=== PATIENT | male | born 1975 | race Two or more races ===

== ENCOUNTER → 2021-01-08 09:55 | Outpatient (REF) | payer OTHER, SELFPAY | LOC: HO.SL 09:55 | PROVIDERS: PCP Internal Medicine; Visit Provider Psychiatry & Neurology Neurology | DX: G47.33 Obstructive sleep apnea (adult) (pediatric) (principal) | CPT/HCPCS: 95806 ==

== ENCOUNTER 2022-06-07 08:29 | Emergency (ER) | payer OTHER, SELFPAY ==
--- NOTE | 2022-06-07 | ECG_ITS ---
Test Reason : abd pain Blood Pressure : / mmHG Vent. Rate : 095 BPM Atrial Rate : 095 BPM P-R Int : 144 ms QRS Dur : 080 ms QT Int : 342 ms P-R-T Axes : 043 078 012 degrees QTc Int : 429 ms Normal sinus rhythm Normal ECG No previous ECGs available Referred By: Generic ED Physician Electronically Signed By:DARSHAN BHATIA MD
--- NOTE | ~2022-06-07 | CT_ITS ---
EXAMINATION: CT ABDOMEN AND PELVIS WITHOUT CONTRAST CLINICAL INFORMATION: Right lower quadrant abdominal pain. Evaluate for appendicitis. COMPARISON: None available. TECHNIQUE: Multidetector volumetric imaging was performed from the superior aspect of the liver through the pubic symphysis. Sagittal and coronal reformatted images were obtained on the technologist's workstation. This CT examination was performed using dose optimization techniques as appropriate, variously including the following: *Automated exposure control *Adjustment of mA and/or kV according to patient size (this includes techniques or standardized protocols for targeted exams where dose is matched to indication/reason for exam; i.e. extremities or head) *Use of iterative reconstruction technique DLP: 737 mGy-cm FINDINGS: LUNG BASES: The visualized lung bases are unremarkable. LIVER, GALLBLADDER, AND BILIARY TREE: The liver is normal in size and shape. Diffuse parenchymal hypoattenuation, consistent with steatosis. No focal hepatic lesion or biliary ductal dilatation is present. Prominent gallstone measuring up to 2.7 cm in greatest dimension. No gallbladder wall thickening or adjacent inflammatory change to suggest acute cholecystitis. Nondilated common bile duct. PANCREAS: Unremarkable. SPLEEN: Unremarkable. ADRENAL GLANDS: Unremarkable. KIDNEYS AND URETERS: The kidneys are normal in size, shape, and attenuation. No hydronephrosis, hydroureter, or calculi seen. No perinephric stranding. BLADDER: Unremarkable. GASTROINTESTINAL TRACT: No small or large bowel obstruction. No bowel wall thickening or inflammatory change. Unremarkable appendix. PERITONEAL CAVITY: No intra-abdominal free air or free fluid. No intra-abdominal mass or organized fluid collection/abscess formation. ABDOMINAL WALL: No significant hernia is appreciated. LYMPH NODES: No significant lymphadenopathy. VASCULAR: Unremarkable. PELVIC VISCERA: The prostate and seminal vesicles are unremarkable. OSSEOUS STRUCTURES: Unremarkable. CT/CT abdomen pelvis wo IV con IMPRESSION: 1. No small or large bowel obstruction. No bowel wall thickening or associated inflammatory change. Unremarkable appendix. 2. Hepatic steatosis. No hepatic parenchymal lesion or biliary ductal dilatation. 3. Cholelithiasis without evidence of acute cholecystitis. 4. No intra-abdominal mass, lymphadenopathy, or ascites. Fleischner guidelines were followed.
[2022-06-07 08:37] VITALS: BP 115/74; PULSE 100; RESP 16; TEMP 36.7; O2SAT 98; BMI 31.0
--- NOTE | 2022-06-07 09:27 | ED.ABDPAIN ---
HPI - Abdominal Pain General Chief Complaint: Abdominal Pain Stated Complaint: abd pain/ nausea Time Seen by Provider: 06/07/22 09:18 Source: patient Mode of arrival: ambulatory Limitations: no limitations History of Present Illness HPI narrative: 46-year-old male came in for evaluation of an abdominal pain. Abdominal pain started since last night started in the mid abdomen now is migrating to the left and right lower abdominal area, pain has been constant since yesterday patient stated that the pain started 20-30 minutes after eating a cookie that his gave him. Pain is associated with nausea and vomiting and diarrhea which patient describes as nonbloody watery. No sick contacts, no recent travel, no recent use of antibiotic. Related Data Previous Rx's Medication Instructions Recorded ondansetron 4 mg disintegrating 4 mg PO Q6-8H PRN nausea and 06/07/22 tablet vomiting #7 tabs Allergies Allergy/AdvReac Type Severity Reaction Status Date / Time No Known Allergies Allergy Verified 06/07/22 08:39 Review of Systems Review of Systems All other systems are reviewed and are negative Constitutional: Reports as per HPI and Reports no additional constitutional complaints Eyes: Reports as per HPI and Reports no additional eye complaints Reports system reviewed and no additional complaints, except as documented Cardiovascular: Reports as per HPI and Reports no additional cardiovascular complaints Respiratory: Reports as per HPI and Reports no additional respiratory complaints Gastrointestinal: Reports as per HPI and Reports no additional gastrointestinal complaints Genitourinary: Reports no additional female genitourinary complaints Musculoskeletal: Reports no additional musculoskeletal complaints Skin/Breast: Reports system reviewed and no additional complaints, except as docu Psychiatric: Reports no additional psychiatric complaints Endocrine: Reports no additional endocrine complaints Hematologic/Lymphatic: Reports no additional hematologic/lymphatic complaints Allergic/Immunologic: Reports no additional allergic/immunologic complaints Reports system reviewed and no additional complaints, except as documented and Reports Abnormal speech present [facility] Social History Social History Advance Directives: No Advance Directives Information Provided: No Physical Exam ED Vital Signs: Vital Signs - 24 hr 06/07/22 08:37 06/07/22 11:49 Temperature 98.1 F Pulse Rate 100 79 Respiratory Rate 16 16 Blood Pressure 115/74 107/69 Pulse Oximetry 98 97 Oxygen Delivery Method Room Air Room Air BMI result Body Mass Index 31.0 Vital signs have been reviewed as appeared to be correct. Blood pressure normal. Heart rate normal. Respiration rate normal. Temperature normal. Oxygen saturation normal. Appearance: Alert. Oriented X3. No acute distress. Head: Normal external exam. Normocephalic. Atraumatic. No Maldonado signs noted. No raccoon eyes noted Eyes: PERRLA. EOMI. Conjunctiva and sclera normal. Eyelids normal. ENT: TM's Normal. Pharynx normal. Uvula midline. Moist mucous membranes. No trismus noted. No drooling noted. No muffled voice noted. Neck: Normal inspection. Neck supple. FROM. No adenopathy. Thyroid Normal. No meningeal signs. No neck mass noted. CVS: Normal heart rate and rhythm. Heart sound normal. No murmurs noted. Pulses normal throughout. Respiratory: No respiratory distress. Painless inspiration. Breath sounds normal. No wheezes/rales/rhonchi noted. Chest nontender. No accessory muscle usage noted or decreased air movement noted. Abdomen: Soft, lower abdominal tenderness, no guarding. Bowel sounds normal in all 4 quadrants. No distention noted. No organomegaly noted. No visible injury noted. Back: No CVA tenderness. Full range of motion noted. Skin: Skin warm and dry. Normal skin color. Normal skin turgor. No rashes/lesions/lacerations noted. Extremities: No lower extremity edema. Extremities exhibit normal range of motion. Extremities nontender. Neuro: Oriented X 3. Cranial nerve exam: II-XII are grossly intact No motor deficit. No sensory deficit. Reflexes normal. Course Course Course Narrative: 46-year-old male came in for nausea, vomiting, nonbloody watery diarrhea, and abdominal pain, unremarkable labs and CT of the abdomen and pelvis showed normal appendix with incidental asymptomatic gallbladder stones. Patient feels better after IV hydration and able to tolerate p.o. change Medical Decision Making Differential Diagnosis Differential Diagnoses: The differential diagnosis associated with the presentation includes (Gastroenteritis, food poisoning, acute appendicitis, colitis, dehydration, electrolyte disturbance, severe anemia.) Admission/Observation Consideration of admission/observation: Escalation of care including admission/observation considered Lab Data MDM Lab Attestation statement: I reviewed the patient's lab results. 06/07/22 09:56 06/07/22 10:26 Labs: Lab Results 04/16/23 04/16/23 Range/Units 09:56 10:26 WBC 8.0 (4.8-10.8) X10*3/uL RBC 5.24 (4.60-5.80) X10*6/uL Hgb 15.1 (14.0-18.0) g/dl Hct 45.7 (42.0-52.0) % MCV 87.2 (80.0-98.0) fL MCH 28.8 (27.0-33.0) pg MCHC 33.0 (31.0-36.0) g/dl RDW 13.3 (11.0-16.0) % Plt Count 202 (160-400) X10*3/uL MPV 11.1 (9.4-12.4) fL Immature Gran % (Auto) 0.2 (0.0-0.4) % Neut % (Auto) 92.1 H (45-73) % Lymph % (Auto) 2.6 L (20-40) % Haakon % (Auto) 4.5 (2-11) % Eos % (Auto) 0.5 (0-4) % Baso % (Auto) 0.1 (0-2) % Lymph # (Auto) 0.2 L (1.2-4.9) X10*3/uL Haakon # (Auto) 0.4 (0.1-1.2) X10*3/uL Eos # (Auto) 0.0 (0.0-0.4) X10*3/uL Baso # (Auto) 0.0 (0.0-0.2) X10*3/uL Abs Immat Gran (auto) 0.02 (0.00-0.03) X10*3/uL Absolute Neuts (auto) 7.4 (2.0-8.3) x10*3/uL Absolute Nucleated RBC 0.000 (0.0-0.012) X10*3/uL Nucleated RBC % (auto) 0.0 (0.0-0.2) /100WBC Smear Tech's Comments VERIFIED Sodium 142 (135-145) mmol/L Potassium 4.2 (3.3-5.1) mmol/L Chloride 111 H (96-108) mmol/L Carbon Dioxide 21 L (22-29) mmol/L Anion Gap 14 (12-20) BUN 26 H (9-16) mg/dL Creatinine 1.12 (0.5-1.4) mg/dL Estim Creat Clear Calc 93.8 Estimated GFR > 60 Random Glucose 126 H (60-115) mg/dL Calcium 8.8 (8.4-10.2) mg/dL Total Bilirubin 0.5 (0.0-1.0) mg/dL AST 18 (5-37) U/L ALT 31 (0-40) U/L Alkaline Phosphatase 59 (39-117) U/L Total Protein 6.7 (6.5-8.0) g/dL Albumin 4.2 (3.5-5.0) g/dL Lipase 11 (8-78) U/L Independent Interpretation I performed an independent interpretation of an: CT Scan (Abdomen and pelvis: No acute intra-abdominal pathology.) Radiology Impression Discussion of test interpretation with radiology: I have reviewed the radiologist's reading. Medications Administered Discontinued Medications Generic Name Dose Route Start Last Admin Trade Name Freq PRN Reason Stop Dose Admin Sodium Chloride 1,000 mls @ 999 mls/hr 06/07/22 10:06/07/22 10:17 Ns IV 06/07/22 11:06 999 mls/hr .Q1H1M ONE Administration Morphine Sulfate 2 mg 06/07/22 10:06/07/22 10:17 Morphine Sulfate 2 Mg/Ml Cartridge IVPUSH 06/07/22 10:07 2 mg ONCE ONE Administration Protocol Ondansetron HCl 4 mg 06/07/22 10:06/07/22 10:17 Ondansetron Hcl 4 Mg/2 Ml Vial IVPUSH 06/07/22 10:07 4 mg ONCE ONE Administration Discharge Plan Discharge Clinical Impression: Gastroenteritis, Cholelithiasis Patient Disposition: Home, Self-Care Instructions: Gastroenteritis (ED) Prescriptions: New ondansetron 4 mg tablet,disintegrating 4 mg PO Q6-8H PRN (Reason: nausea and vomiting) Qty: 7 0RF
[2022-06-07 10:03] LABS: Basophils Percent Auto 0.1 % (0-2); Eosinophils Percent Auto 0.5 % (0-4); Hematocrit 45.7 % (42.0-52.0); Hemoglobin 15.1 g/dl (14.0-18.0); Imm Gran Abs Auto 0.02 X10*3/uL (0.00-0.03); Imm Gran Pct Auto 0.2 % (0.0-0.4); Lymphocytes Absolute Auto 0.2 X10*3/uL (1.2-4.9); Lymphocytes Percent Auto 2.6 % (20-40); MANUAL DIFF FLAG SCAN; Mean Corpuscular Hemoglobin 28.8 pg (27.0-33.0); Mean Corpuscular Volume 87.2 fL (80.0-98.0); Mean Platelet Volume 11.1 fL (9.4-12.4); Monocytes Absolute Auto 0.4 X10*3/uL (0.1-1.2); Monocytes Percent Auto 4.5 % (2-11); Neutrophils Absolute Auto 7.4 x10*3/uL (2.0-8.3); Neutrophils Percent Auto 92.1 % (45-73); Platelet Count 202 X10*3/uL (160-400); Red Blood Count 5.24 X10*6/uL (4.60-5.80); Red Cell Distribution Width 13.3 % (11.0-16.0); SCAN SMEAR FLAG 1
[2022-06-07] MEDS: Morphine Sulfate 2 MG/ML CARTRIDGE IVPUSH (10:17)
[2022-06-07] MEDS: ondansetron HCL 4 MG/2 ML VIAL IVPUSH (10:17)
[2022-06-07] MEDS: 0.9 % Sodium Chloride 1,000 ML 999 ML IV (10:17)
--- NOTE | 2022-06-07 10:27 | MHC.EDTECH ---
Labs recollected and sent
[2022-06-07 10:31] LABS: SLIDE REVIEW VERIFIED
[2022-06-07 10:55] LABS: Alanine Aminotransferase 31 U/L (0-40); Albumin Level 4.2 g/dL (3.5-5.0); Alkaline Phosphatase 59 U/L (39-117); Anion Gap 14 (12-20); Aspartate Amino Transferase 18 U/L (5-37); Bilirubin Total 0.5 mg/dL (0.0-1.0); Blood Urea Nitrogen 26 mg/dL (9-16); Calcium 8.8 mg/dL (8.4-10.2); Carbon Dioxide 21 mmol/L (22-29); Chloride 111 mmol/L (96-108); Creatinine Clr Calc Pharmacy 93.8; Estimated Glomerular Filt Rate > 60; Glucose Random 126 mg/dL (60-115); Lipase 11 U/L (8-78); Potassium 4.2 mmol/L (3.3-5.1); Sodium 142 mmol/L (135-145); Total Protein 6.7 g/dL (6.5-8.0)
[2022-06-07 11:49] VITALS: BP 107/69; PULSE 79; RESP 16; O2SAT 97
== END 2022-06-07 11:58 | disposition home or self-care (01) ==
PROVIDERS: Emergency Provider Emergency Medicine
DX: K52.9 Noninfective gastroenteritis and colitis, unspecified (principal); K80.20 Calculus of gallbladder without cholecystitis without obstruction; R10.31 Right lower quadrant pain; Z79.899 Other long term (current) drug therapy
CPT/HCPCS: 36415; 74176; 80053; 83690; 85025; 93005; 96361; 96374; 96375; 99284; 99285; J2270; J2405

== ENCOUNTER 2022-11-06 22:00 | Emergency (ER) | payer OTHER, SELFPAY ==
--- NOTE | ~2022-11-06 | US_ITS ---
EXAMINATION: US ABDOMEN LIMITED CLINICAL INFORMATION: Right upper quadrant pain. COMPARISON: CT abdomen/pelvis 06/07/2022. TECHNIQUE: Real-time imaging of the right upper quadrant abdominal viscera. FINDINGS: PANCREAS: Normal. LIVER: Increased liver parenchymal echogenicity sparing areas adjacent to the gallbladder fossa. Otherwise, liver is normal in size and shape. No intrahepatic biliary ductal dilatation. GALLBLADDER: Cholelithiasis, including an impacted calculus in the neck. No significant wall thickening or pericholecystic free fluid. Negative Alcantar's sign. COMMON BILE DUCT: Normal in caliber measuring 0.3 cm in diameter. RIGHT KIDNEY: Normal. No hydronephrosis. No renal calculi or focal parenchymal lesions. The kidney measures 10.5 cm in maximum dimension. FREE FLUID: None. US/US abdomen limited IMPRESSION: 1. Cholelithiasis, including an impacted calculus in the gallbladder neck. However, there is no significant wall thickening or pericholecystic free fluid to suggest acute cholecystitis. 2. Hepatic steatosis with regional sparing adjacent to the gallbladder fossa.
--- NOTE | ~2022-11-06 | CT_ITS ---
EXAMINATION: CT ABDOMEN AND PELVIS WITH CONTRAST CLINICAL INFORMATION: Right lower quadrant pain. COMPARISON: None available. TECHNIQUE: Multidetector volumetric images were obtained from the superior aspect of the liver through the pubic symphysis following administration 85 mL of Omnipaque 350 intravenous contrast. Sagittal and coronal reformatted images were obtained on the technologist's workstation. Oral contrast: No This CT examination was performed using dose optimization techniques as appropriate, variously including the following: *Automated exposure control *Adjustment of mA and/or kV according to patient size (this includes techniques or standardized protocols for targeted exams where dose is matched to indication/reason for exam; i.e. extremities or head) *Use of iterative reconstruction technique DLP: 716 mGy-cm FINDINGS: LUNG BASES: The visualized lung bases are unremarkable. LIVER, GALLBLADDER, AND BILIARY TREE: The liver is of diminished attenuation. No focal liver lesions are seen. There is no intrahepatic biliary duct dilatation. Gallstones are noted. PANCREAS: Unremarkable. SPLEEN: Unremarkable. ADRENAL GLANDS: Unremarkable. KIDNEYS AND URETERS: The kidneys are normal in size, shape, and attenuation. No hydronephrosis, hydroureter, or calculi seen. No perinephric stranding. BLADDER: Unremarkable. GASTROINTESTINAL TRACT: The small and large bowel are unremarkable. The appendix is unremarkable. ABDOMINAL WALL: There are small fat-containing hernias. LYMPH NODES: Normal. VASCULAR: Unremarkable. PELVIC VISCERA: Unremarkable. OSSEOUS STRUCTURES: Unremarkable. CT/CT abdomen pelvis w IV con IMPRESSION: The appendix is visualized and is within normal limits. Fatty infiltration of the liver. Cholelithiasis. Fleischner guidelines were followed.
[2022-11-06 22:01] VITALS: BP 145/84; PULSE 74; RESP 16; TEMP 35.8; O2SAT 100; BMI 31.6
--- NOTE | 2022-11-06 22:08 | ECG_ITS ---
Test Reason : ABDOMIAL PAIN Blood Pressure : / mmHG Vent. Rate : 061 BPM Atrial Rate : 061 BPM P-R Int : 174 ms QRS Dur : 082 ms QT Int : 400 ms P-R-T Axes : 041 025 024 degrees QTc Int : 402 ms Normal sinus rhythm Normal ECG When compared with ECG of 07-JUN-2022 08:47, Vent. rate has decreased BY 34 BPM Referred By: Generic ED Physician Electronically Signed By:ADELSO AGUILLON
[2022-11-06 22:29] LABS: MANUAL DIFF FLAG NO
[2022-11-06 22:31] LABS: Basophils Percent Auto 0.4 % (0-2); Eosinophils Absolute Auto 0.2 X10*3/uL (0.0-0.4); Hematocrit 43.3 % (42.0-52.0); Hemoglobin 14.8 g/dl (14.0-18.0); Imm Gran Abs Auto 0.01 X10*3/uL (0.00-0.03); Imm Gran Pct Auto 0.2 % (0.0-0.4); Lymphocytes Absolute Auto 1.2 X10*3/uL (1.2-4.9); Lymphocytes Percent Auto 24.2 % (20-40); Mean Corpuscular HGB Conc 34.2 g/dl (31.0-36.0); Mean Corpuscular Hemoglobin 29.6 pg (27.0-33.0); Mean Corpuscular Volume 86.6 fL (80.0-98.0); Mean Platelet Volume 11.3 fL (9.4-12.4); Monocytes Absolute Auto 0.5 X10*3/uL (0.1-1.2); Monocytes Percent Auto 10.2 % (2-11); Neutrophils Absolute Auto 3.1 x10*3/uL (2.0-8.3); Platelet Count 239 X10*3/uL (160-400); Red Cell Distribution Width 13.3 % (11.0-16.0)
[2022-11-06 23:02] LABS: Alanine Aminotransferase 38 U/L (0-40); Albumin Level 4.4 g/dL (3.5-5.0); Alkaline Phosphatase 72 U/L (39-117); Aspartate Amino Transferase 24 U/L (5-37); Bilirubin Direct 0.1 mg/dL (0.0-0.5); Bilirubin Total 0.3 mg/dL (0.0-1.0); Blood Urea Nitrogen 19 mg/dL (9-16); Calcium 9.6 mg/dL (8.4-10.2); Creatinine Clr Calc Pharmacy 94.6; Estimated Glomerular Filt Rate > 60; Glucose Random 86 mg/dL (60-115); Lipase 18 U/L (8-78); Total Protein 7.7 g/dL (6.5-8.0)
--- NOTE | 2022-11-06 23:20 | ED_ITS ---
HPI - Abdominal Pain General Chief Complaint: Abdominal Pain Stated Complaint: R sided abdominal pain Time Seen by Provider: 11/06/22 23:17 History of Present Illness HPI narrative: Patient is a 47-year-old male has a history of abdominal pain on the right side. Is specially made worse after Haitian fries and chicken nuggets. The pain is dull it is associated with some mild nausea. It is made worse with the food. Been having the pain for the last month. No chest pain or shortness of breath no history of abdominal surgery in the past. No diaphoresis. No fever no chills no cough and congestion or upper respiratory symptoms. No change of bowel movement. The pain is cramping. Related Data Previous Rx's Medication Instructions Recorded ondansetron 4 mg disintegrating 4 mg PO Q6-8H PRN nausea and 06/07/22 tablet vomiting #7 tabs Allergies Allergy/AdvReac Type Severity Reaction Status Date / Time No Known Allergies Allergy Verified 06/07/22 08:39 Review of Systems Review of Systems Positive right-sided abdominal pain Yes all other systems are reviewed and are negative [facility] Past Medical History Attestation statement: The following information was validated with the patient. Social History Social History Smoked in Last 30 Days: No Use of substances other than those prescribed or required for medical reasons: No Advance Directives: No Advance Directives Information Provided: No Physical Exam ED Vital Signs: Vital Signs - 24 hr 11/06/22 22:01 11/07/22 00:09 Temperature 96.4 F L 97.9 F Pulse Rate 74 60 Respiratory Rate 16 14 Blood Pressure 145/84 H 128/65 Pulse Oximetry 100 97 Oxygen Delivery Method Room Air BMI result Body Mass Index 31.6 Appearance: Alert. Oriented X3. No acute distress. Eyes: Pupils equal, round and reactive to light. ENT: Pharynx normal. Neck: Normal inspection. Neck supple. No lymph nodes noted. No crepitus CVS: Normal heart rate and rhythm. Pulses normal. Normal S1 and S2 Respiratory: No respiratory distress. Breath sounds normal. No Wheezing. No rales Abdomen: Soft and nontender. No rigidity. No distention. good BS x4 Skin: Skin warm and dry. Normal skin color. Normal skin turgor. Extremities: No lower extremity edema. Neurovascular intact to all extremities. No Lacerations. No Rash Neuro: Oriented X 3. No motor deficit. No sensory deficit. Moving all extermities. No slurred speech Medical Decision Making Medical Decision Making [facility] Narrative: Well-appearing no acute distress. The abdominal exam is actually benign. The pain has been ongoing getting worse with fatty foods. Will get ultrasound of the right upper quadrant. Patient also had right lower quadrant pain. CT scan of the abdomen is ordered. The LFTs are normal. Lipase is normal no evidence for pancreatitis Patient's ultrasound showed a gallstone at the neck of the gallbladder. There is no evidence of any gallbladder wall thickening there is no sonographic Alcantar sign there is no pericholecystic fluid patient's LFTs are normal. Symptom has since resolved with pain medication. Patient had chicken nugget then had the abdominal pain. Likely had biliary colic. Asked patient to refrain from fatty foods. Close follow-up with surgery on an outpatient basis. Patient states understanding. CT scan of the abdomen showed no evidence of obstruction abscess perforation appendicitis. No acute finding. Patient to be discharged home. Differential Diagnosis Differential Diagnoses: The differential diagnosis associated with the presentation includes Appendicitis, diverticulitis, obstruction, abscess, perforation, cholecystitis, abdominal aortic aneurysm Admission/Observation Consideration of admission/observation: Escalation of care including admission/observation considered Pain completely gone LFTs are normal no distress no signs of cholecystitis on the ultrasound will discharge patient home follow up surgery on an outpatient basis Lab Data [facility] Lab Attestation statement: I reviewed the patient's lab results. 11/06/22 22:23 11/06/22 22:23 Labs: Lab Results 11/06/22 11/06/22 Range/Units 22:23 23:25 WBC 5.0 (4.8-10.8) X10*3/uL RBC 5.00 (4.60-5.80) X10*6/uL Hgb 14.8 (14.0-18.0) g/dl Hct 43.3 (42.0-52.0) % MCV 86.6 (80.0-98.0) fL MCH 29.6 (27.0-33.0) pg MCHC 34.2 (31.0-36.0) g/dl RDW 13.3 (11.0-16.0) % Plt Count 239 (160-400) X10*3/uL MPV 11.3 (9.4-12.4) fL Immature Gran % (Auto) 0.2 (0.0-0.4) % Neut % (Auto) 61.0 (45-73) % Lymph % (Auto) 24.2 (20-40) % Stephenson % (Auto) 10.2 (2-11) % Eos % (Auto) 4.0 (0-4) % Baso % (Auto) 0.4 (0-2) % Lymph # (Auto) 1.2 (1.2-4.9) X10*3/uL Stephenson # (Auto) 0.5 (0.1-1.2) X10*3/uL Eos # (Auto) 0.2 (0.0-0.4) X10*3/uL Baso # (Auto) 0.0 (0.0-0.2) X10*3/uL Abs Immat Gran (auto) 0.01 (0.00-0.03) X10*3/uL Absolute Neuts (auto) 3.1 (2.0-8.3) x10*3/uL Absolute Nucleated RBC 0.000 (0.0-0.012) X10*3/uL Nucleated RBC % (auto) 0.0 (0.0-0.2) /100WBC Sodium 143 (135-145) mmol/L Potassium 4.1 (3.3-5.1) mmol/L Chloride 107 (96-108) mmol/L Carbon Dioxide 26 (22-29) mmol/L Anion Gap 14 (12-20) BUN 19 H (9-16) mg/dL Creatinine 1.11 (0.5-1.4) mg/dL Estim Creat Clear Calc 94.6 Estimated GFR > 60 Random Glucose 86 (60-115) mg/dL Calcium 9.6 D (8.4-10.2) mg/dL Total Bilirubin 0.3 (0.0-1.0) mg/dL Direct Bilirubin 0.1 (0.0-0.5) mg/dL AST 24 (5-37) U/L ALT 38 (0-40) U/L Alkaline Phosphatase 72 (39-117) U/L Total Protein 7.7 (6.5-8.0) g/dL Albumin 4.4 (3.5-5.0) g/dL Lipase 18 (8-78) U/L Urine Color Yellow Urine Appearance Clear Urine pH 6.5 (5.0-9.0) Ur Specific [place] 1.025 (1.005-1.025) Urine Protein Negative (Neg-Trace) mg/dL Urine Glucose (UA) 100 H (Negative) mg/dL Urine Ketones Negative (Negative) mg/dL Urine Blood Negative (Negative) Urine Nitrite Negative (Negative) Ur Leukocyte Esterase Negative (Negative) Independent Interpretation I performed an independent interpretation of an: CT Scan Interpretation: CT scan showed no obstruction no abscess no perforation Radiology Impression Discussion of test interpretation with radiology: I have reviewed the radiologist's reading. Medications Administered Discontinued Medications Generic Name Dose Route Start Last Admin Trade Name Freq PRN Reason Stop Dose Admin Hydromorphone HCl 0.5 mg 11/07/22 00:20 11/07/22 00:39 Hydromorphone Hcl 0.5 Mg/0.5 Ml Syringe IVPUSH 11/07/22 00:21 0.5 mg ONCE ONE Administration Protocol Sodium Chloride 1,000 mls @ 999 mls/hr 11/06/22 23:30 11/06/22 23:43 Ns IV 11/07/22 00:30 999 mls/hr .Q1H1M TAMANNA Administration Iohexol 85 ml 11/07/22 00:34 11/07/22 00:34 Iohexol 350 Mg/Ml 100 Ml Infus..Btl IV 11/07/22 00:35 85 ml ONCE ONE Administration Ondansetron HCl 4 mg 11/06/22 23:19 11/06/22 23:43 Ondansetron Hcl 4 Mg/2 Ml Vial IVPUSH 11/06/22 23:20 4 mg ONCE ONE Administration Discharge Plan Discharge Clinical Impression: Biliary colic Patient Disposition: Home, Self-Care Instructions: Biliary Colic (ED) Prescriptions: No Action ondansetron 4 mg tablet,disintegrating 4 mg PO Q6-8H PRN (Reason: nausea and vomiting) Qty: 7 0RF Referrals: Osman Montilla MD [Physician] - 11/10/22
[2022-11-06 23:31] LABS: Appearance Urine Clear; Color Urine Yellow; Glucose Urine UA 100 mg/dL (Negative); Leukocyte Esterase Urine Negative (Negative); Nitrite Urine Negative (Negative); PH 6.5 (5.0-9.0); Specific Gravity - Urine 1.025 (1.005-1.025); Urine Blood Negative (Negative); Urine Ketones Negative (Negative); Urine Protein Negative (Neg-Trace)
[2022-11-06 23:31] LABS: Anion Gap 14 (12-20); Carbon Dioxide 26 mmol/L (22-29); Chloride 107 mmol/L (96-108); Potassium 4.1 mmol/L (3.3-5.1); Sodium 143 mmol/L (135-145)
[2022-11-06] MEDS: 0.9 % Sodium Chloride 1,000 ML 999 ML IV (23:43)
[2022-11-06] MEDS: ondansetron HCL 4 MG/2 ML VIAL IVPUSH (23:43)
[2022-11-07 00:09] VITALS: BP 128/65; PULSE 60; RESP 14; TEMP 36.6; O2SAT 97
[2022-11-07] MEDS: iohexoL 350 MG/ML 100 ML INFUS..BTL 85 ML IV (00:34)
[2022-11-07] MEDS: HYDROmorphone HCl 0.5 MG/0.5 ML SYRINGE IVPUSH (00:39)
== END 2022-11-07 02:01 | disposition home or self-care (01) ==
PROVIDERS: Emergency Provider Emergency Medicine Emergency Medical Services
DX: K80.70 Calculus of gallbladder and bile duct without cholecystitis without obstruction (principal)
CPT/HCPCS: 36415; 74177; 76705; 80048; 80076; 81003; 83690; 85025; 93005; 96361; 96374; 96375; 99284; 99285; J1170; J2405; Q9967

== ENCOUNTER 2022-11-13 10:22 | Outpatient (AMB) | payer OTHER, SELFPAY ==
[2022-11-13 10:26] VITALS: BP 137/84; PULSE 84; BMI 30.4
--- NOTE | 2022-11-13 10:26 | A.OFFVIS_ITS ---
Intake Vital Signs 11/13/22 10:26 Height 5 ft 9 in Weight 206 lb BMI 30.4 BP 137/84 Blood Pressure Location Rt brachial Position Sitting Pulse 84 Intake Visit Reasons: biliary colic Intake Note: Patient here f/u ER visit on 11-06-22. C/o constant abd pain. Had abd/ CT on 11-07-22. Diagnosed with gallstones. C/o abd pain and nausea. Denies diarrhea or constipation. Was prescribed ondasetron 4mg. Product Support Sales Representative Required: No Accompanied by: Self / Same As Patient Allergies No Known Allergies Allergy (Verified 11/13/22 10:29) Medication List - Last Reconciled 11/13/22 by Osman Montilla MD codeine sulfate 15 mg PO BID PRN ondansetron 4 mg PO Q6-8H PRN HPI HPI Comments History of Present Illness Details Patient presents because of recurrent bouts of biliary colic. He has had 2 ER visits. One 2 months ago, 1 last week. Workup demonstrates cholelithiasis. Patient thinks he has fatty food intolerance and that greasy, fried, fatty foods in particular bring on his symptoms which right upper quadrant pain. In general, patient tolerates his diet has regular bowel habits. He has never been jaundiced before. Chart was reviewed patient evaluate Sonogram shows cholelithiasis, LFTs within normal limits. Physical Exam Vital Signs: Last Vital Signs Pulse 84 11/13/22 10:26 BP 137/84 11/13/22 10:26 BMI result Body Mass Index 30.4 Eyes Other: Anicteric Chest Other: Chest breath sounds bilaterally, HS 1 in 2 GI Other: Moderately corpulent. Soft, mild upper quadrant tenderness. Assessment & Plan Assessment & Plan (1) Recurrent biliary colic: Code(s): K80.50 - Calculus of bile duct without cholangitis or cholecystitis without obstruction Plan Risks, benefits, alternatives laparoscopic possible open cholecystectomy reviewed the patient and included but not limited to bleeding, infection, recurrence of symptoms, numbness, pain, scarring, bowel or bile duct injury or leak and the patient wishes to proceed. All questions were answered. Arrangements were made for this. Medications: New 2 codeine sulfate Partial Fill upon patient request. 15 mg PO BID PRN 20 tabs 0RF pain Coding Level of Care Code New Pt Level 5 (60270) Diagnoses Recurrent biliary colic K80.50
== END 2022-11-13 11:13 | disposition home or self-care (01) ==
PROVIDERS: Visit Provider Surgery
DX: K80.50 Calculus of bile duct without cholangitis or cholecystitis without obstruction (principal)
CPT/HCPCS: 99204

== ENCOUNTER → 2022-11-13 10:22 | Outpatient (BNVA) | payer OTHER, SELFPAY | PROVIDERS: Visit Provider Surgery ==

== ENCOUNTER 2022-11-20 08:46 | Day surgery (SDC) | payer OTHER, SELFPAY ==
--- NOTE | 2022-11-19 10:39 | MHC.SHP ---
Pre-Procedural Eval Section A Date of Service: 11/19/22 The patient is an INPATIENT: No Changes since office visit: No Cold of Flu in the past 2 weeks, No New Medical Problems, No Changes in Medication and No Patient answered all questions The History & Physical has been completed within 30 days and I have reviewed it.: Yes Section B Chief Complaint: Calculus of bile duct without cholangitis or norbert Allergies: Allergies Allergy/AdvReac Type Severity Reaction Status Date / Time No Known Allergies Allergy Verified 11/13/22 10:29 Plan I have reviewed the history and physical and performed a pertinent physical examination on my patient. No changes have occurred unless specified. Time Spent With Patient Time: Total time managing care of this patient today ____ minutes.
[2022-11-20] VITALS (18 sets, daily range): BP systolic 125–151; BP diastolic 75–101; PULSE 57–72; RESP 16–22; TEMP 36.1–36.9; O2SAT 93–99; BMI 31.9
[2022-11-20] MEDS: Lactated Ringers 1,000 ML 80 ML IVCONT (09:35)
--- NOTE | 2022-11-20 11:14 | HO.ANESPROP2 ---
HPI - Anesthesia Eval Consult details Narrative: 47 yo M presenting for lap norbert. LUZMARIA not on CPAP PMFSH Active Problems Active Problems: All Active Problems (Updated 11/13/22 @ 10:41 by Osman Montilla MD) Recurrent biliary colic (Acute) Family History Family history of problems with anesthesia: No Surgical History Surgical History History of carpal tunnel surgery of left wrist S/P transoral endoluminal fundoplication History of Problems with Anesthesia: No Social History Social History Patient Tobacco Use Status: Never used Tobacco Use of substances other than those prescribed or required for medical reasons: No Are you DNR?: No Advance Directives: No Advance Directives Information Provided: Yes Meds Allergies Allergy/AdvReac Type Severity Reaction Status Date / Time No Known Allergies Allergy Verified 11/13/22 10:29 Active Medications: Current Medications Lactated Ringer's (Lr) 1,000 mls @ 80 mls/hr IVCONT .[id number] TAMANNA Last Admin: 11/20/22 09:35 Dose: 80 mls/hr Home Medications Medication Instructions Recorded Confirmed Last Taken Type citalopram 40 mg tablet 40 mg PO DAILY 11/20/22 11/20/22 Unknown History codeine sulfate 15 mg tablet 15 mg PO BID PRN pain 11/20/22 11/20/22 Unknown History Exam Exam Date and Time: November 20, 2022 1035 Height,Weight and Vital Signs: Height 5 ft 7 in Weight 92.533 kg Last Vital Signs Temp 97.7 F 11/20/22 09:08 Pulse 71 11/20/22 09:08 Resp 16 11/20/22 09:08 BP 129/84 11/20/22 09:08 Pulse Ox 95 11/20/22 09:08 O2 Del Method Room Air 11/20/22 09:08 Airway Mallampati Class: I TM Dist: <=3cm Neck ROM: Full Loose/Missing/Broken Teeth: No Heart: S1S2 Lungs: CTAB Assessment and Plan Assessment Anesthesia Assessment: Anesthesia Plan Discussed and Chart Reviewed Final Anesthetic Review Family History of Problems with Anesthesia: No History of Problems with Anesthesia: No NPO: Yes ASA Class: II Final Preanesthetic Review: No Changes in Pt Med Stat, Meds/Allgs Chart Reviewed, Consent Obtained/Reviewed and Anes Risks/Benef Reviewed Patient Risk: Low Procedure Risk: Low Anesthetic Plan Anesthetic Plan: GA and Agree w/ Assess. and Plan Disposition: Standard PACU
--- NOTE | 2022-11-20 11:45 | W.PM.OPN ---
Operative Note Operative Note Date of Service: 11/20/22 Narrative: Preoperative diagnosis: [] Recurrent biliary colic Postop diagnosis: [] Same Procedure [] laparoscopic cholecystectomy Surgeon: [] Roldan Security Flex Officer: [] Jean-Paul Type of Anesthesia: [] General Indication for surgery: [] Gallbladder with large gallstones. Omental adhesions to the gallbladder. Markedly intrahepatic gallbladder. Findings: [] Patient brought to the operating room, placed on operative table in supine position, after adequate level of general anesthesia was induced, the patient's abdomen was prepped and draped in usual sterile fashion. Using a supraumbilical curvilinear incision, Castellon technique was used to insufflate the abdominal cavity to 15 mm of CO2. Upper midline and right subcostal ports were placed under direct laparoscopic view, and the patient placed in reverse Trendelenburg position, tilted to the left. Gallbladder was grasped using laparoscopic graspers, and omental adhesions were swept off the gallbladder. Hilum was approached with the cystic artery and cystic duct were each identified, circumferentially skeletonized, each traced directly into the gallbladder, and critical view obtained. Each was clipped proximally x2, distally x1, and transected. Gallbladder was then cauterized from the gallbladder fossa using electro Bovie. Gallbladder was markedly intrahepatic. Specimen was placed in an Endo-Catch bag, a retrieved through the umbilical port. Abdominal cavity was copiously irrigated and secured hemostasis. All ports were removed under direct laparoscopic view. Wounds were closed in the following manner; umbilical wound has fascia reapproximated using interrupted 0 Vicryl sutures. Skin wounds were closed using subcuticular 4-0 Vicryl sutures followed by Steri-Strips and sterile dressings. Wounds were infiltrated 0.5% Marcaine at completion. Sponge, needle, instrument counts reported correct. Patient tolerated the procedure well and emerged anesthesia stable condition. EBL minimal
[2022-11-20] MEDS: fentaNYL citrate/PF 100 MCG/2 ML VIAL 50 MCG IVPUSH ×3 (12:00→13:10)
[2022-11-20] MEDS: Acetaminophen 325 MG TABLET 650 MG PO (12:24)
[2022-11-20] MEDS: oxyCODONE HCl Immed Release 5 MG TABLET 10 MG PO (12:26)
== END 2022-11-20 14:54 | disposition home or self-care (01) ==
PROVIDERS: Visit Provider Surgery
PROC: 0FT44ZZ Resection of Gallbladder, Percutaneous Endoscopic Approach (ICD-10-PCS; CPT 47562; principal; 2022-11-20 10:40)
DX: K80.10 Calculus of gallbladder with chronic cholecystitis without obstruction (principal); K82.8 Other specified diseases of gallbladder; Q44.1 Other congenital malformations of gallbladder; Z79.899 Other long term (current) drug therapy
CPT/HCPCS: 47562; 88304; J0690; J1100; J2405; J2550; J3010

== ENCOUNTER → 2022-11-20 08:46 | Outpatient (BNV) | payer OTHER, SELFPAY | PROVIDERS: Visit Provider Surgery | DX: K80.50 Calculus of bile duct without cholangitis or cholecystitis without obstruction (principal) | CPT/HCPCS: 47562 ==

== ENCOUNTER 2022-12-01 11:01 | Outpatient (AMB) | payer OTHER, SELFPAY ==
--- NOTE | 2022-12-01 11:07 | MHC.OFFVIS ---
Intake Vital Signs 12/01/22 11:10 Weight 199 lb BP 145/80 H Blood Pressure Location Rt brachial Position Sitting Pulse 89 Intake Visit Reasons: S/P lap norbert Intake Note: Patient here s/p lap norbert. Reports incisions healing well. C/o itch, redness. Denies pain or discomfort. No longer taking rx pain meds. Newspaper Columnist Required: No Accompanied by: Self / Same As Patient Allergies No Known Allergies Allergy (Verified 12/01/22 11:12) HPI HPI Comments History of Present Illness Details Patient presents for follow-up status post lap choly. He is doing quite well. He has time diet. Having normal bowel habits. He is increasing his activity level. He has minimal incisional discomfort. Pathology was benign. [facility] Surgical History History of carpal tunnel surgery of left wrist S/P transoral endoluminal fundoplication Social History Patient Tobacco Use Status: Never used Tobacco Physical Exam Vital Signs: Last Vital Signs Pulse 89 12/01/22 11:10 BP 145/80 H 12/01/22 11:10 Eyes Other: Anicteric GI Other: Abdomen soft, all wounds clean dry and intact. Assessment & Plan Assessment & Plan (1) Recurrent biliary colic: Code(s): K80.50 - Calculus of bile duct without cholangitis or cholecystitis without obstruction Plan Patient has been given local instructions. He will get a note to start working approximately 2 and half weeks. He will follow-up p.r.n.. Coding Level of Care Code Global (27929) Diagnoses Recurrent biliary colic K80.50
[2022-12-01 11:10] VITALS: BP 145/80; PULSE 89
== END 2022-12-01 11:21 | disposition home or self-care (01) ==
PROVIDERS: Visit Provider Surgery
DX: K80.50 Calculus of bile duct without cholangitis or cholecystitis without obstruction (principal)
CPT/HCPCS: 99024

== ENCOUNTER → 2022-12-01 11:01 | Outpatient (BNVA) | payer OTHER, SELFPAY | PROVIDERS: Visit Provider Surgery ==